=== PATIENT | female | born 1975 | race Caucasian/White ===

== ENCOUNTER 2024-11-18 19:16 | Emergency (ER) | payer MEDICAID ==
[~2024-11-18] VITALS: Ht 157.5 cm; Wt 88.0 kg
[~2024-11-18 19:16] MED LIST: nifedipine
[2024-11-18 19:42] VITALS: O2SAT 98
[2024-11-18 20:29] LABS: HEMATOCRIT. 36.2 % (36.0-48.0); HEMOGLOBIN. 11.8 g/dL (12.0-16.0); MEAN CORPUSCULAR HEMOGLOBIN 29.1 pg (28.0-32.0); MEAN CORPUSCULAR HGB CONC 32.7 g/dL (31.0-37.0); MEAN CORPUSCULAR VOLUME 89.1 fL (81.0-99.0); MEAN PLATELET VOLUME 10.2 fl (7.4-10.4); PLATELET 215 x1000/uL (130-400); RED BLOOD CELL COUNT 4.06 mill/uL (4.2-5.4); RED CELL DISTRIBUTION WIDTH 13.6 % (11.6-14.6); WHITE BLOOD COUNT 7.6 x1000/uL (4.5-11.0)
[2024-11-18 20:34] LABS: CHLORIDE 101 mEq/L (98-107); POTASSIUM 3.9 mEq/L (3.5-5.1); SODIUM 134 mEq/L (136-145)
[2024-11-18 20:35] LABS: CARBON DIOXIDE 22 mEq/L (21-32)
[2024-11-18 20:36] LABS: CALCIUM 9.4 mg/dL (8.7-10.4)
[2024-11-18 20:37] LABS: DIFFERENTIAL COMMENT 1
[2024-11-18 20:40] LABS: CREATININE 1.2 mg/dL (0.6-1.0); GLUCOSE 113 mg/dL (70-105)
[2024-11-18 20:41] LABS: UREA NITROGEN BLOOD 13 mg/dL (9-23)
[2024-11-18 20:42] LABS: ALANINE AMINOTRANSFERASE 29 IU/L (10-49); ALBUMIN 4.4 g/dL (3.2-4.8); ASPARTATE AMINOTRANSFERASE 38 IU/L (<34)
[2024-11-18 20:43] LABS: BILIRUBIN TOTAL 0.4 mg/dL (0.1-1.0); PROTEIN TOTAL 9.4 g/dL (6.0-8.3)
[2024-11-18 20:53] LABS: PLATELET ESTIMATE NORMAL
[2024-11-18 21:00] LABS: CLARITY URINE CLEAR (CLEAR); COLOR URINE YELLOW (YELLOW); GLUCOSE URINE NEGATIVE (NEGATIVE); KETONES URINE NEGATIVE (NEGATIVE); LEUKOCYTE ESTERASE URINE TRACE (NEGATIVE); NITRITE URINE NEGATIVE (NEGATIVE); OCCULT BLOOD URINE NEGATIVE (NEGATIVE); PROTEIN URINE 2+ (NEGATIVE); SPECIFIC GRAVITY URINE 1.021 (1.005-1.030)
[2024-11-18 21:22] LABS: BACTERIA URINE NONE SEEN; RBC URINE 0-2 /hpf (0-2); SQUAMOUS EPITHELIAL CELL URINE RARE /lpf (RARE/1+); WBC URINE 0-2 /hpf (0-2)
[2024-11-18] MEDS: ACETAMINOPHEN 500MG TABLET PO NR (22:33)
[2024-11-18] MEDS: DIPHENHYDRAMINE 12.5MG/5ML UDC PO ONE (23:31)
[2024-11-18] MEDS: METOCLOPRAMIDE HCL 10MG/2ML VIAL IV ONE (23:31)
[2024-11-19 00:15] LABS: HCG SCREEN NEGATIVE
[2024-11-19] MEDS ORDERED: IBUP-2029 MT (00:33)
[2024-11-19] MEDS ORDERED: METO-293 MT (00:33)
[2024-11-19 01:00] VITALS: BP 145/66; PULSE 67; RESP 18; TEMP 36.89184; O2SAT 98
== END 2024-11-19 01:00 | disposition home or self-care (01) ==
LOC: ER 19:16
DX: G44.209 Tension-type headache, unspecified, not intractable (principal); I10 Essential (primary) hypertension; Z90.49 Acquired absence of other specified parts of digestive tract; Z98.890 Other specified postprocedural states
CPT/HCPCS: 99285; 96374; 70450; 80053; 81003; 84703; 83880; 85025; 36415; Q0163; J2765